=== PATIENT | male | born 1970 | race Caucasian/White ===

== ENCOUNTER 2017-06-20 03:24 | Emergency (ER) | payer OTHER ==
[2017-06-20] MEDS ORDERED: LORazepam 1 MG TAB PO STA (03:50)
--- NOTE | 2017-06-20 03:57 | ED ---
General Adult HPI - General Chief complaint: Upper Respiratory Infection Stated complaint: congestion Time Seen by Provider: 06/20/17 03:46 Source: patient, family, RN notes reviewed Mode of arrival: ambulatory Limitations: no limitations - History of Present Illness Initial comments: Patient is a pleasant 46-year-old male presenting to the emergency Department with congestion and anxiety. Symptoms have been present for the past 8 days. Patient does have sinus congestion with some drainage. Patient feels an echoing in his ears. Patient is unclear if he has some mild discomfort in his head. Patient is feeling anxious and difficult to relax. No chest congestion or cough or dyspnea. No fevers. No weakness or confusion. - Related Data Home Medications Medication Instructions Recorded Confirmed Levothyroxine Sodium [Synthroid] 75 mcg PO DAILY 04/12/15 06/20/17 traMADol HCL/ACETAMINOPHEN 1 each PO Q6H PRN 06/14/15 06/20/17 [Ultracet 37.5-325] Hydrochlorothiazide 25 mg PO 06/20/17 Losartan Potassium 100 mg PO 06/20/17 06/20/17 cloNIDine HCL 0.3 mg PO 06/20/17 Allergies Allergy/AdvReac Type Severity Reaction Status Date / Time amlodipine [From Norvasc] AdvReac Cough Verified 06/20/17 03:34 enalaprilat [From Vasotec] AdvReac Cough Verified 06/20/17 03:34 hydrochlorothiazide AdvReac Cough Verified 06/20/17 03:34 [From Dyazide] triamterene [From Dyazide] AdvReac Cough Verified 06/20/17 03:34 Review of Systems ROS Statement: Those systems with pertinent positive or pertinent negative responses have been documented in the HPI. ROS Other: All systems not noted in ROS Statement are negative. Constitutional: Denies: fever, chills Eyes: Denies: eye pain ENT: Reports: congestion Respiratory: Denies: cough, dyspnea Cardiovascular: Denies: chest pain Endocrine: Denies: fatigue Gastrointestinal: Denies: abdominal pain Genitourinary: Denies: dysuria Musculoskeletal: Denies: back pain Skin: Denies: rash Neurological: Denies: weakness, confusion Psychiatric: Reports: anxiety Past Medical History Past Medical History: Hypertension, Thyroid Disorder History of Any Multi-Drug Resistant Organisms: None Reported Past Surgical History: Tonsillectomy Past Psychological History: No Psychological Hx Reported Smoking Status: Never smoker Past Alcohol Use History: None Reported Past Drug Use History: None Reported General Exam Limitations: no limitations General appearance: alert, in no apparent distress Head exam: Present: atraumatic Eye exam: Present: normal appearance, PERRL, other (Mild tenderness to the frontal ethmoid and maxillary sinuses.) ENT exam: Present: normal oropharynx Neck exam: Present: normal inspection Respiratory exam: Present: normal lung sounds bilaterally Cardiovascular Exam: Present: regular rate, normal rhythm GI/Abdominal exam: Present: soft. Absent: tenderness Extremities exam: Present: normal inspection Neurological exam: Present: alert, oriented X3, CN II-XII intact. Absent: motor sensory deficit Expanded Speech: Present: fluid speech Cranial nerves: EOM's Intact: Normal Psychiatric exam: Present: normal affect, normal mood Skin exam: Present: normal color Course Vital Signs 06/20/17 06/20/17 06/20/17 03:27 04:58 05:21 Temperature 96.9 F L Pulse Rate 68 73 76 Respiratory 20 18 18 Rate Blood Pressure 188/109 154/108 156/96 O2 Sat by Pulse 99 99 98 Oximetry 06/20/17 05:58 Temperature Pulse Rate 72 Respiratory 20 Rate Blood Pressure 146/93 O2 Sat by Pulse 99 Oximetry EKG Findings - EKG Comments: EKG Findings:: Normal sinus rhythm 74. AZ 156. QRS 98. QT 392. QTC 435. Normal axis. LVH criteria. Q wave in V1 and V2. No acute ST change. Medical Decision Making - Medical Decision Making Patient reexamined and improved following Ativan. Patient and family updated on results and need for follow-up. Patient also updated on need to follow-up for elevation of blood sugar. Patient advised to consider [id number] Claritin, saline nasal spray, or nasal steroid as needed. Blood pressure has improved. - Lab Data Result diagrams: 06/20/17 05:19 06/20/17 05:19 Lab Results 06/20/17 06/20/17 Range/Units 05:19 05:19 WBC 6.3 (3.8-10.6) k/uL RBC 5.00 (4.30-5.90) m/uL Hgb 15.2 (13.0-17.5) gm/dL Hct 43.3 (39.0-53.0) % MCV 86.7 (80.0-100.0) fL MCH 30.3 (25.0-35.0) pg MCHC 35.0 (31.0-37.0) g/dL RDW 14.0 (11.5-15.5) % Plt Count 298 (150-450) k/uL Neutrophils % 54 % Lymphocytes % 27 % Monocytes % 8 % Eosinophils % 8 % Basophils % 2 % Neutrophils # 3.4 (1.3-7.7) k/uL Lymphocytes # 1.7 (1.0-4.8) k/uL Monocytes # 0.5 (0-1.0) k/uL Eosinophils # 0.5 (0-0.7) k/uL Basophils # 0.1 (0-0.2) k/uL Sodium 137 (137-145) mmol/L Potassium 4.3 (3.5-5.1) mmol/L Chloride 101 (98-107) mmol/L Carbon Dioxide 29 (22-30) mmol/L Anion Gap 7 mmol/L BUN 8 L (9-20) mg/dL Creatinine 0.90 (0.66-1.25) mg/dL Est GFR (MDRD) Af Amer >60 (>60 ml/min/1.73 sqM) Est GFR (MDRD) Non-Af >60 (>60 ml/min/1.73 sqM) Glucose 147 H (74-99) mg/dL Calcium 9.5 (8.4-10.2) mg/dL Total Bilirubin 0.7 (0.2-1.3) mg/dL AST 37 (17-59) U/L ALT 63 (21-72) U/L Alkaline Phosphatase 42 (38-126) U/L Total Protein 6.5 (6.3-8.2) g/dL Albumin 4.0 (3.5-5.0) g/dL - Radiology Data Radiology results: report reviewed (Computed tomography scan of the brain shows no acute process) Disposition Clinical Impression: Head congestion, Hypertension, Anxiety Disposition: HOME SELF-CARE Condition: Stable Instructions: Antihistamine/Decongestant (By mouth), Hypertension (ED), Anxiety (ED) Additional Instructions: Please follow-up with doctor tomorrow. Return for difficulty breathing, change in mental status, weakness or confusion, worsening symptoms or other concerns. Please also have your doctor recheck blood sugar. Referrals: Suma Jacobo DO [Primary Care Provider] - 1-2 days Time of Disposition: 06:37
--- NOTE | 2017-06-20 04:53 | CT ---
EXAM: CT Head Without Intravenous Contrast CLINICAL HISTORY: congestion, facial pain, recent diagnosis of sinusitis, TECHNIQUE: Axial computed tomography images of the head/brain without intravenous contrast. CTDI is 57.4 mGy and DLP is 1047.1 mGy-cm. This CT exam was performed using one or more of the following dose reduction techniques: automated exposure control, adjustment of the mA and/or kV according to patient size, and/or use of iterative reconstruction technique. Coronal and sagittal reconstructions are performed COMPARISON: No relevant prior studies available. FINDINGS: Brain: Unremarkable. No hemorrhage. No significant white matter disease. No edema. Ventricles: Unremarkable. No ventriculomegaly. Bones/joints: Unremarkable. No acute fracture. Soft tissues: Unremarkable. Sinuses: Unremarkable as visualized. No acute sinusitis. Mastoid air cells: Unremarkable as visualized. No mastoid effusion. 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 IMPRESSION: No acute findings. Clear paranasal sinuses
[2017-06-20] MEDS ORDERED: cloNIDine HCL 0.1 MG TAB PO STA (04:57)
[2017-06-20] MEDS ORDERED: LORazepam 2 MG/ML INJ IV STA (04:57)
[2017-06-20] MEDS ORDERED: LOSARTAN 50 MG TAB PO STA (04:58)
[2017-06-20 05:42] LABS: Basophils # (A) 0.1 k/uL (0-0.2); Basophils % (A) 2 %; CH 30.8; CHCM 35.6; Eosinophils # (A) 0.5 k/uL (0-0.7); Eosinophils % (A) 8 %; HCT 43.3 % (39.0-53.0); HDW 2.85; HGB 15.2 gm/dL (13.0-17.5); Luc # (Auto) 0.14; Luc % (Auto) 2; Lymphocytes # (A) 1.7 k/uL (1.0-4.8); Lymphocytes % (A) 27 %; MCH 30.3 pg (25.0-35.0); MCV 86.7 fL (80.0-100.0); Mean Platelet Volume 6.7; Monocytes # (A) 0.5 k/uL (0-1.0); Monocytes % (A) 8 %; Neutrophils # (A) 3.4 k/uL (1.3-7.7); Neutrophils % (A) 54 %; WBC 6.3 k/uL (3.8-10.6); WBC (Perox) 6.49
[2017-06-20 06:20] LABS: ALT 63 U/L (21-72); AST 37 U/L (17-59); Alkaline Phosphatase 42 U/L (38-126); Anion Gap 7 mmol/L; Blood Urea Nitrogen 8 mg/dL (9-20); Calcium 9.5 mg/dL (8.4-10.2); Carbon Dioxide 29 mmol/L (22-30); Chloride 101 mmol/L (98-107); Glucose 147 mg/dL (74-99); Non-African American GFR(MDRD) >60 (>60 ml/min/1.73 sqM); Sodium 137 mmol/L (137-145); Total Bilirubin 0.7 mg/dL (0.2-1.3); Total Protein 6.5 g/dL (6.3-8.2)
[2017-06-20 06:25] LABS: Potassium 4.3 mmol/L (3.5-5.1)
[2017-06-20] MEDS ORDERED: HYDROCHLOROTHIAZIDE 25 MG TAB PO STA (06:31)
[2017-06-20 07:08] VITALS: BP 129/70; PULSE 70; RESP 18; TEMP 97.6
[2017-06-20] MEDS ORDERED: HYDROCHLOROTHIAZIDE 25 MG TAB PO SCH (09:00)
== END 2017-06-20 07:08 | disposition home or self-care (01) ==
LOC: EC 03:24
DX: R09.81 Nasal congestion (principal); F41.9 Anxiety disorder, unspecified; I10 Essential (primary) hypertension; E07.9 Disorder of thyroid, unspecified; Z88.8 Allergy status to other drugs, medicaments and biological substances; Z79.899 Other long term (current) drug therapy
CPT/HCPCS: 99284; 96374; 36415; 93005; 80053; 85025; 70450; J2060

== ENCOUNTER → 2018-05-11 | Outpatient (CLI) | payer OTHER ==
--- NOTE | 2018-05-11 15:45 | US ---
EXAMINATION TYPE: US abdomen complete DATE OF EXAM: 05/11/2018 COMPARISON: CT abdomen and pelvis April 12, 2015 CLINICAL HISTORY: R94.5 Abnormal results of liver function studies. EXAM MEASUREMENTS: Liver Length: 17.6 cm Gallbladder Wall: 0.2 cm CBD: 0.5 cm Spleen: 13.9 cm Right Kidney: 12.3 x 6.4 x 7.0 cm Left Kidney: 14.1 x 6.9 x 6.9 cm Pancreas: Obscured by bowel gas Liver: Increased attenuation, decreased visualization of vessels suggestive of fatty infiltrate Gallbladder: No stones seen Evidence for sonographic Hughes's sign: no CBD: wnl Spleen: 13.9 cm ? enlarged Right Kidney: No hydronephrosis or masses seen Left Kidney: No hydronephrosis or masses seen Upper IVC: Obscured by overlying bowel gas Abd Aorta: Obscured by overlying bowel gas Images limited by large body habitus. The visualized liver remains markedly heterogeneously hyperechoic. Evaluation for focal masses is sub optimal due to the heterogeneity. The intrahepatic portion of the IVC and abdominal aorta are obscure d by overlying bowel gas. There is no evidence of shadowing mobile cholelithiasis. Common bile duct is unremarkable. The pancreas suboptimally seen on images saved secondary to shadowing from overlyin g bowel gas per technologist. The spleen is mildly enlarged and heterogeneous. Kidneys are symmetri c and free of hydronephrosis. No renal lesions are seen. IMPRESSION: Suboptimal study with marked fatty infiltration of liver redemonstrated.
== END | disposition home or self-care (01) ==
LOC: RADUSWWP 08:45
PROVIDERS: ATTEND Family Medicine
DX: K76.0 Fatty (change of) liver, not elsewhere classified (principal)
CPT/HCPCS: 76700

== ENCOUNTER 2019-03-10 08:45 | Emergency (ER) | payer OTHER ==
[2019-03-10 08:50] VITALS: RESP 18
[2019-03-10] MEDS ORDERED: LABETALOL 5 MG/ML VIAL MDV IVP STA (09:10)
--- NOTE | 2019-03-10 09:38 | XR ---
EXAMINATION TYPE: XR chest 2V DATE OF EXAM: 03/10/2019 COMPARISON: NONE TECHNIQUE: PA and lateral views submitted. HISTORY: Difficulty breathing FINDINGS: The lungs are clear and there is no pneumothorax, pleural effusion, or focal pneumonia. Hypertrophi c change of the spine. Arthropathy of the shoulders. No overt failure. Mild cardiomegaly. Central int erstitium mildly prominent. IMPRESSION: 1. Mild cardiomegaly. Central interstitium mildly prominent could been the basis of early venous fahad estion or bronchitis correlate clinically.
[2019-03-10 09:46] LABS: INR 0.9 (<1.2); Partial Thromboplastin Time 24.6 sec (22.0-30.0)
[2019-03-10 09:48] LABS: ALT 37 U/L (21-72); AST 27 U/L (17-59); African American GFR (CKD) >90 (>60 ml/min/1.73 sqM); Albumin 4.1 g/dL (3.5-5.0); Alkaline Phosphatase 43 U/L (38-126); Anion Gap 7 mmol/L; Blood Urea Nitrogen 14 mg/dL (9-20); Calcium 9.1 mg/dL (8.4-10.2); Carbon Dioxide 29 mmol/L (22-30); Chloride 104 mmol/L (98-107); Glucose 150 mg/dL (74-99); Magnesium 1.7 mg/dL (1.6-2.3); Non-African American GFR(CKD) >90 (>60 ml/min/1.73 sqM); Potassium 3.6 mmol/L (3.5-5.1); Sodium 140 mmol/L (137-145); Total Bilirubin 1.7 mg/dL (0.2-1.3); Total Protein 6.5 g/dL (6.3-8.2)
--- NOTE | 2019-03-10 09:49 | ED ---
Recheck HPI - General Chief Complaint: Shortness of Breath Stated Complaint: High BP, SOB Time Seen by Provider: 03/10/19 08:51 Source: patient, RN notes reviewed, old records reviewed Mode of arrival: ambulatory Limitations: no limitations - History of Present Illness Initial Comments: This is a 48-year-old male the ER for evaluation. Patient resents today for a few complaints. Patient complaining of hypertension and shortness of breath shortness of breath mainly with exertion. Occasional chest pain but nothing significant. Patient is a cardiac evaluation before including stress test. Patient states symptoms have been episodic for a few weeks. Patient was seen by primary care month ago blood pressure was running normal). Patient is on 3 blood pressure medications he takes as directed. No recent travel history no sick contacts mild swelling of lower extremities MD Complaint: other (Patient recheck abnormal blood pressure) -: unknown Returns Today for: Called Because of Abnormal Lab/Test (Evaluation of elevated blood pressure) Symptoms Since Prior Visit: no new symptoms (Mild shortness of breath episodic) Context: other (Symptoms of shortness of breath) Associated Symptoms: chest pain, shortness of breath Treatments Prior to Arrival: other medications (Prescribed) - Related Data Home Medications Medication Instructions Recorded Confirmed Levothyroxine Sodium [Synthroid] 75 mcg PO DAILY 04/12/15 03/10/19 Hydrochlorothiazide 25 mg PO DAILY 06/20/17 03/10/19 Losartan Potassium 100 mg PO DAILY 06/20/17 03/10/19 cloNIDine HCL 0.3 mg PO BID 06/20/17 03/10/19 metFORMIN HCL ER [Glucophage Xr] 500 mg PO DAILY 03/10/19 03/10/19 Allergies Allergy/AdvReac Type Severity Reaction Status Date / Time amlodipine [From Norvasc] AdvReac Cough Verified 03/10/19 09:24 enalaprilat [From Vasotec] AdvReac Cough Verified 03/10/19 09:24 hydrochlorothiazide AdvReac Cough Verified 03/10/19 09:24 [From Dyazide] triamterene [From Dyazide] AdvReac Cough Verified 03/10/19 09:24 Review of Systems ROS Statement: Those systems with pertinent positive or pertinent negative responses have been documented in the HPI. ROS Other: All systems not noted in ROS Statement are negative. Past Medical History Past Medical History: Hypertension, Thyroid Disorder History of Any Multi-Drug Resistant Organisms: None Reported Past Surgical History: Tonsillectomy Past Psychological History: No Psychological Hx Reported Smoking Status: Never smoker Past Alcohol Use History: None Reported Past Drug Use History: None Reported General Exam Limitations: no limitations General appearance: alert, in no apparent distress Head exam: Present: atraumatic, normocephalic, normal inspection Eye exam: Present: normal appearance, PERRL, EOMI. Absent: scleral icterus, conjunctival injection, periorbital swelling ENT exam: Present: normal exam, mucous membranes moist Neck exam: Present: normal inspection. Absent: tenderness, meningismus, lymphadenopathy Respiratory exam: Present: normal lung sounds bilaterally. Absent: respiratory distress, wheezes, rales, rhonchi, stridor Cardiovascular Exam: Present: regular rate, normal rhythm, normal heart sounds. Absent: systolic murmur, diastolic murmur, rubs, gallop, clicks GI/Abdominal exam: Present: soft, normal bowel sounds. Absent: distended, tenderness, guarding, rebound, rigid Extremities exam: Present: normal inspection, full ROM, normal capillary refill. Absent: tenderness, pedal edema, joint swelling, calf tenderness Back exam: Present: normal inspection Neurological exam: Present: alert, oriented X3, CN II-XII intact Psychiatric exam: Present: normal affect, normal mood Skin exam: Present: warm, dry, intact, normal color. Absent: rash Course Vital Signs 03/10/19 03/10/19 03/10/19 08:48 09:12 09:30 Temperature 98.3 F Pulse Rate 77 73 84 Respiratory 18 18 Rate Blood Pressure 201/106 170/135 155/92 O2 Sat by Pulse 98 98 98 Oximetry 03/10/19 03/10/19 10:00 10:30 Temperature Pulse Rate 66 65 Respiratory 17 18 Rate Blood Pressure 155/92 150/88 O2 Sat by Pulse 96 97 Oximetry - Reevaluation(s) Reevaluation #1: 03/10/19 09:49 Medical records reviewed Medical Decision Making - Medical Decision Making 48 male the ER for evaluation presented today for shortness of breath no improvement.Patient here in the ER blood pressures improved without treatment. Patient will continue follow-up with primary care or cardiology in the future for further management of blood pressure - Lab Data Result diagrams: 03/10/19 09:15 08/10/19 09:15 Lab Results 03/10/19 03/10/19 03/10/19 Range/Units 09:15 09:15 09:15 WBC 5.7 (3.8-10.6) k/uL RBC 4.85 (4.30-5.90) m/uL Hgb 14.9 (13.0-17.5) gm/dL Hct 42.0 (39.0-53.0) % MCV 86.6 (80.0-100.0) fL MCH 30.7 (25.0-35.0) pg MCHC 35.4 (31.0-37.0) g/dL RDW 15.9 H (11.5-15.5) % Plt Count 241 (150-450) k/uL Neutrophils % 54 % Lymphocytes % 29 % Monocytes % 5 % Eosinophils % 9 % Basophils % 1 % Neutrophils # 3.1 (1.3-7.7) k/uL Lymphocytes # 1.7 (1.0-4.8) k/uL Monocytes # 0.3 (0-1.0) k/uL Eosinophils # 0.5 (0-0.7) k/uL Basophils # 0.1 (0-0.2) k/uL Manual Slide Review Performed Hyperchromasia Slight PT (9.0-12.0) sec INR (<1.2) APTT (22.0-30.0) sec Sodium 140 (137-145) mmol/L Potassium 3.6 (3.5-5.1) mmol/L Chloride 104 (98-107) mmol/L Carbon Dioxide 29 (22-30) mmol/L Anion Gap 7 mmol/L BUN 14 (9-20) mg/dL Creatinine 0.92 (0.66-1.25) mg/dL Est GFR (CKD-EPI)AfAm >90 (>60 ml/min/1.73 sqM) Est GFR (CKD-EPI)NonAf >90 (>60 ml/min/1.73 sqM) Glucose 150 H (74-99) mg/dL Calcium 9.1 (8.4-10.2) mg/dL Magnesium 1.7 (1.6-2.3) mg/dL Total Bilirubin 1.7 H (0.2-1.3) mg/dL AST 27 (17-59) U/L ALT 37 (21-72) U/L Alkaline Phosphatase 43 (38-126) U/L Troponin I (0.000-0.034) ng/mL NT-Pro-B Natriuret Pep 98 pg/mL Total Protein 6.5 (6.3-8.2) g/dL Albumin 4.1 (3.5-5.0) g/dL 03/10/19 03/10/19 Range/Units 09:15 09:15 WBC (3.8-10.6) k/uL RBC (4.30-5.90) m/uL Hgb (13.0-17.5) gm/dL Hct (39.0-53.0) % MCV (80.0-100.0) fL MCH (25.0-35.0) pg MCHC (31.0-37.0) g/dL RDW (11.5-15.5) % Plt Count (150-450) k/uL Neutrophils % % Lymphocytes % % Monocytes % % Eosinophils % % Basophils % % Neutrophils # (1.3-7.7) k/uL Lymphocytes # (1.0-4.8) k/uL Monocytes # (0-1.0) k/uL Eosinophils # (0-0.7) k/uL Basophils # (0-0.2) k/uL Manual Slide Review Hyperchromasia PT 10.0 (9.0-12.0) sec INR 0.9 (<1.2) APTT 24.6 (22.0-30.0) sec Sodium (137-145) mmol/L Potassium (3.5-5.1) mmol/L Chloride (98-107) mmol/L Carbon Dioxide (22-30) mmol/L Anion Gap mmol/L BUN (9-20) mg/dL Creatinine (0.66-1.25) mg/dL Est GFR (CKD-EPI)AfAm (>60 ml/min/1.73 sqM) Est GFR (CKD-EPI)NonAf (>60 ml/min/1.73 sqM) Glucose (74-99) mg/dL Calcium (8.4-10.2) mg/dL Magnesium (1.6-2.3) mg/dL Total Bilirubin (0.2-1.3) mg/dL AST (17-59) U/L ALT (21-72) U/L Alkaline Phosphatase (38-126) U/L Troponin I <0.012 (0.000-0.034) ng/mL NT-Pro-B Natriuret Pep pg/mL Total Protein (6.3-8.2) g/dL Albumin (3.5-5.0) g/dL - EKG Data -: EKG Interpreted by Me (EKG shows sinus rhythm rate of 60, LA 172, QRS 100, QTC 444) - Radiology Data Radiology results: report reviewed (Chest x-rays negative for acute disease), image reviewed Disposition Clinical Impression: Hypertension Disposition: HOME SELF-CARE Condition: Good Instructions (If sedation given, give patient instructions): Hypertension (ED) Is patient prescribed a controlled substance at d/c from ED?: No Referrals: Suma Jacobo DO [Primary Care Provider] - 1-2 days Greg Cabello MD [STAFF PHYSICIAN] - 1-2 days
[2019-03-10 09:55] LABS: Basophils # (A) 0.1 k/uL (0-0.2); Basophils % (A) 1 %; Eosinophils # (A) 0.5 k/uL (0-0.7); Eosinophils % (A) 9 %; HGB 14.9 gm/dL (13.0-17.5); Hyperchromasia Slight; Lymphocytes # (A) 1.7 k/uL (1.0-4.8); Lymphocytes % (A) 29 %; MCH 30.7 pg (25.0-35.0); MCHC 35.4 g/dL (31.0-37.0); MCV 86.6 fL (80.0-100.0); Mean Platelet Volume 6.6; Monocytes # (A) 0.3 k/uL (0-1.0); Monocytes % (A) 5 %; Neutrophils # (A) 3.1 k/uL (1.3-7.7); Neutrophils % (A) 54 %; Platelet Count 241 k/uL (150-450); RBC 4.85 m/uL (4.30-5.90); RDW 15.9 % (11.5-15.5); WBC 5.7 k/uL (3.8-10.6)
[2019-03-10] MEDS ORDERED: FUROSEMIDE 10 MG/ML 4 ML VIAL IV STA (11:06)
[2019-03-10 11:17] VITALS: BP 160/92; PULSE 67; TEMP 98
== END 2019-03-10 11:35 | disposition home or self-care (01) ==
LOC: EC 08:45
DX: I10 Essential (primary) hypertension (principal); R06.02 Shortness of breath; R07.9 Chest pain, unspecified; M79.89 Other specified soft tissue disorders; E07.9 Disorder of thyroid, unspecified; Z88.8 Allergy status to other drugs, medicaments and biological substances; Z79.84 Long term (current) use of oral hypoglycemic drugs; Z79.890 Hormone replacement therapy; Z79.899 Other long term (current) drug therapy
CPT/HCPCS: 36415; 83880; 80053; 83735; 84484; 85025; 85610; 85730; 71046; 99285; 96374; 96375; J1940; 93005

== ENCOUNTER → 2019-03-28 | Outpatient (CLI) | payer OTHER ==
--- NOTE | 2019-03-28 11:11 | ECHOF ---
Referral Reason:R06.02 SOB MEASUREMENTS -------- HEIGHT: 182.9 cm WEIGHT: 157.8 kg BP: RVIDd: 3.0 cm (< 3.3) IVSd: 1.5 cm (0.6 - 1.1) LVIDd: 4.9 cm (3.9 - 5.3) LVPWd: 1.6 cm (0.6 - 1.1) IVSs: 1.8 cm LVIDs: 3.7 cm LVPWs: 1.9 cm LA Diam: 4.1 cm (2.7 - 3.8) LAESV Index (A-L): 24.32 ml/m Ao Diam: 3.0 cm (2.0 - 3.7) AV Cusp: 1.7 cm (1.5 - 2.6) LA Diam: 5.0 cm (2.7 - 3.8) MV EXCURSION: 19.523 mm (> 18.000) MV EF SLOPE: 74 mm/s (70 - 150) EPSS: 0.7 cm MV E Isreal: 0.55 m/s MV DecT: 248 ms MV A Isreal: 0.53 m/s MV E/A Ratio: 1.04 RAP: 5.00 mmHg RVSP: 14.73 mmHg FINDINGS -------- Sinus rhythm. Morbid Obesity The left ventricular size is normal. There is moderate concentric left ventricular hypertrophy. O verall left ventricular systolic function is low-normal with, an EF between 50 - 55 %. The right ventricle is normal in size. The left atrium is mildly dilated. Normal LA size by volume 22+/-6 ml/m2. The right atrial size is normal. The aortic valve is trileaflet, and appears structurally normal. No aortic stenosis or regurgitation. Mild mitral regurgitation is present. Mild tricuspid regurgitation present. Right ventricular systolic pressure is normal at < 35 mmHg. There is no evidence of pulmonary hypertension. There is no pulmonic regurgitation present. The aortic root size is normal. There is no pericardial effusion. CONCLUSIONS -------- 1. Sinus rhythm. 2. Morbid Obesity 3. The left ventricular size is normal. 4. There is moderate concentric left ventricular hypertrophy. 5. Overall left ventricular systolic function is low-normal with, an EF between 50 - 55 %. 6. The right ventricle is normal in size. 7. The left atrium is mildly dilated. 8. Normal LA size by volume 22+/-6 ml/m2. 9. The right atrial size is normal. 10. The aortic valve is trileaflet, and appears structurally normal. No aortic stenosis or regurgitat ion. 11. Mild mitral regurgitation is present. 12. Mild tricuspid regurgitation present. 13. Right ventricular systolic pressure is normal at < 35 mmHg. 14. There is no evidence of pulmonary hypertension. 15. There is no pulmonic regurgitation present. 16. The aortic root size is normal. 17. There is no pericardial effusion. TOOL KEEPER: Avani Maher RDCS
--- NOTE | 2019-03-28 11:16 | EST ---
EXERCISE STRESS DATE OF SERVICE: 03/28/2019 AGE: 48 SEX: Male HT: 73" WT: 348 pounds PROTOCOL: Bo STAGE: III DURATION OF EXERCISE: 9 minutes HEART RATE REST: 75 BLOOD PRESSURE REST: 152/97 MAXIMUM HEART RATE ACHIEVED: 150 MAXIMUM BLOOD PRESSURE: 256/98 85% MPHR: 147 100% MPHR: 173 METS: 10 INDICATIONS: Hypertension and difficulty in breathing. CLINICAL INFORMATION: Baseline EKG shows sinus rhythm, poor R-wave progression. Patient exercised on Bo protocol for a total of 9 minutes achieving 10 METs, 87% of predicted maximal heart rate without chest pain. At this level of exercise, patient developed 1.[address]-segment depression in the inferolateral leads. CONCLUSIONS: 1. Good exercise tolerance. 2. Abnormal stress test by EKG criteria. MMODL / IJN: [id number] /
== END | disposition home or self-care (01) ==
LOC: RADNMMAIN 08:23
PROVIDERS: ATTEND Family Medicine
DX: I07.1 Rheumatic tricuspid insufficiency (principal); I05.1 Rheumatic mitral insufficiency; E66.01 Morbid (severe) obesity due to excess calories
CPT/HCPCS: 93017; 93306

== ENCOUNTER → 2019-04-04 | Outpatient (CLI) | payer OTHER ==
[~2019-04-04] MED LIST: REGADENOSON 0.4 MG/5 ML SYRINGE IV ONE
--- NOTE | 2019-04-04 11:49 | NM ---
EXAMINATION TYPE: NM stress lexiscan cardiolite DATE OF EXAM: 04/04/2019 COMPARISON: NONE HISTORY: Shortness of breath with abnormal EKG TECHNIQUE: After the intravenous administration of 10.26 mCi Tc 99m Sestamibi - Cardiolite resting S PECT images acquired 45 minutes post injection. The patient received 0.4mg Lexiscan, 26.9 mCi Tc 99m Sestamibi - Stress images obtained [address] injection FINDINGS: Review of stress and rest SPECT images demonstrates no reversible perfusion abnormality. Gated yusuf sis shows normal wall motion with an estimated left ventricular ejection fraction of 48 %. TID is wit hin normal limits at 1.02. IMPRESSION: No scintigraphic evidence for reversible ischemia. Estimated left ventricular ejection fraction of 48 %.
--- NOTE | 2019-04-05 07:59 | EST ---
EXERCISE STRESS DATE OF SERVICE: 04/04/2019 AGE: 48 SEX: Male HT: 73" WT: 348 pounds PROTOCOL: Lexiscan Cardiolite STAGE: DURATION OF EXERCISE: HEART RATE REST: 74 BLOOD PRESSURE REST: 131/91 MAXIMUM HEART RATE ACHIEVED: 89 MAXIMUM BLOOD PRESSURE: 85% MPHR: 147 100% MPHR: 175 METS: INDICATIONS: Chest pain. CLINICAL INFORMATION: STRESS DATA: Heart rate 74, pressure is 131/91 mmHg. Baseline EKG showed sinus mechanism. The 0.4 mg of Lexiscan given over 15 seconds per protocol. Max heart rate was 89 beats per minute. Maximum pressure was 131/91 mmHg. Clinically the patient did not have any symptoms and the EKG did not show any significant ST or T-wave abnormalities concerning for ischemia. CONCLUSION: 1. Nondiagnostic electrocardiogram stress testing in response to Lexiscan. 2. Please follow up on the Cardiolite portion on a separate report from the radiology department. MMODL / IJN: [id number] /
== END | disposition home or self-care (01) ==
LOC: RADNMMAIN 07:40
PROVIDERS: ATTEND Family Medicine
DX: R94.31 Abnormal electrocardiogram [ECG] [EKG] (principal); R06.02 Shortness of breath
CPT/HCPCS: 93017; 78452; A9500

== ENCOUNTER → 2021-09-06 | Outpatient (CLI) | payer OTHER ==
--- NOTE | 2021-09-06 09:37 | MR ---
EXAMINATION TYPE: MR knee RT wo con DATE OF EXAM: 09/06/2021 COMPARISON: None. HISTORY: Right knee pain and locking for 2 years. Osteoarthritis. Effusion. Pain. TECHNIQUE: Multiplanar, multisequence imaging of the right knee is performed without IV contrast. FINDINGS: Suboptimal due to motion artifact degradation. MEDIAL MENISCUS: Marked truncated appearance to the medial meniscus with only tiny residual meniscus noted posteriorly. LATERAL MENISCUS: Anterior and posterior horns are intact without tear. CRUCIATE LIGAMENTS: The anterior and posterior cruciate ligaments are intact and unremarkable. COLLATERAL LIGAMENTS: The medial collateral ligament and lateral collateral ligament complex are inta ct. There is medial bowing of the medial collateral ligament with moderate surrounding fluid. EXTENSOR MECHANISM: Visualized quadriceps and patellar tendons are intact. EFFUSION: Large suprapatellar joint effusion. POPLITEAL CYST: Moderate size popliteal/de jesus cyst measuring 6.3 cm long axis sagittal image 14. Tomi e ill-defined fluid superiorly suggests leak. There are some internal foreign bodies within the popli teal cyst. TRICOMPARTMENT SPACES: Severe narrowing medial tibiofemoral compartment. Moderate narrowing and spurr ing patellofemoral compartment. Mild to moderate lateral spurring lateral tibiofemoral compartment CARTILAGE: Full thickness cartilaginous loss medial tibiofemoral compartment. Some chondromalacia pat marlene with fissuring and cartilaginous loss along the posterior aspect of the patella greatest lateral aspect. BONE MARROW SIGNAL: Heterogeneous diffuse increased T2 signal medial tibial femoral compartment great est medial aspect and greatest over the distal femur with areas of articular low T1 signal. OTHER: No additional significant abnormality is appreciated. IMPRESSION: 1. Advanced degenerative changes medial tibiofemoral compartment as detailed above quite prominent fo r patient's chronologic age. 2. Full-thickness tearing of the majority of the medial meniscus, minimal residual meniscal tissue re wilbert present. 3. Large suprapatellar joint effusion. 4. Moderate patellofemoral joint arthropathy as detailed above. 5. Moderate-sized leaking popliteal cyst with internal debris 6. 6. Moderate MCL sprain injury.
== END | disposition home or self-care (01) ==
LOC: RADMRIMAIN 08:14
PROVIDERS: ATTEND Orthopaedic Surgery
DX: S83.241A Other tear of medial meniscus, current injury, right knee, initial encounter (principal); M25.461 Effusion, right knee; M12.861 Other specific arthropathies, not elsewhere classified, right knee; M71.21 Synovial cyst of popliteal space [Baker], right knee; X58.XXXA Exposure to other specified factors, initial encounter

== ENCOUNTER → 2023-10-07 | Outpatient (CLI) | payer OTHER ==
--- NOTE | 2023-10-07 17:45 | CA ---
Transthoracic Echo Report Name: Ulises Javier Age: 53 Gender: M : 1970 Exam Date: 10/07/2023 14:24 Exam Location: [facility] Ht (in): 71 Wt (lb): 295 Ordering Physician: Suma Jacobo DO Attending/Referring Phys: Evangelina Self [facility] Mobile Developer Eliz Lima RDCS Procedure CPT: Indications: I10 HYPERTENSION Cardiac Hx: Technical Quality: Contrast 1: Total Dose (mL): Contrast 2: Total Dose (mL): MEASUREMENTS (Male / Female) Normal Values 2D ECHO LV Diastolic Diameter PLAX 3.8 cm 4.2 - 5.9 / 3.9 - 5.3 cm LV Systolic Diameter PLAX 2.5 cm IVS Diastolic Thickness 1.3 cm 0.6 - 1.0 / 0.6 - 0.9 cm LVPW Diastolic Thickness 1.3 cm 0.6 - 1.0 / 0.6 - 0.9 cm LV Relative Wall Thickness 0.7 LVOT Diameter 2.6 cm Aortic Root Diameter 3.6 cm LA Systolic Diameter LX 4.3 cm 3.0 - 4.0 / 2.7 - 3.8 cm LV Diastolic Volume MOD BP 81.3 cm??? 67 - 155 / 56 - 104 cm??? LV Systolic Volume MOD BP 41.8 cm??? / 19 - 49 cm??? LV Ejection Fraction MOD BP 48.6 % >= 55 % LV Cardiac Index MOD BP 1165.4 cm???/min???m??? LV Diastolic Volume MOD 4C 107.3 cm??? LV Systolic Volume MOD 4C 54.6 cm??? LV Ejection Fraction MOD 4C 49.1 % LV Cardiac Index MOD 4C 1551.6 cm???/min???m??? LV Diastolic Length 4C 7.3 cm LV Systolic Length 4C 6.4 cm LV Diastolic Volume MOD 2C 58.1 cm??? LV Systolic Volume MOD 2C 25.6 cm??? LV Ejection Fraction MOD 2C 55.9 % LV Cardiac Index MOD 2C 957.6 cm???/min???m??? LV Diastolic Length 2C 6.8 cm LV Systolic Length 2C 4.9 cm LA Volume 50.9 cm??? - 58 / 22 - 52 cm??? LA Volume Index 19.2 cm???/m??? 16 - 28 cm???/m??? DOPPLER AV Peak Velocity 133.6 cm/s AV Peak Gradient 7.1 mmHg AV Mean Velocity 98.6 cm/s AV Mean Gradient 4.2 mmHg AV Velocity Time Integral 24.6 cm LVOT Peak Velocity 99.9 cm/s LVOT Peak Gradient 4.0 mmHg LVOT Velocity Time Integral 21.2 cm LVOT Stroke Volume 109.8 cm??? LVOT Stroke Volume Index 44.2 ml/m??? LVOT Cardiac Index 3235.5 cm???/min???m??? AV Area Cont Eq vti 4.5 cm??? AV Area Cont Eq pk 3.9 cm??? MV Area PHT 3.4 cm??? Mitral E Point Velocity 59.9 cm/s Mitral A Point Velocity 60.9 cm/s Mitral E to A Ratio 1.0 MV Deceleration Time 224.5 ms PV Peak Velocity 95.3 cm/s PV Peak Gradient 3.6 mmHg FINDINGS Left Ventricle Left ventricular ejection fraction is estimated at 55-60 %. Moderate concentric left ventricular hypertrophy. Mildly increased septal wall thickness. Right Ventricle Normal right ventricular size. Right Atrium Normal right atrial size. Left Atrium Mildly increased left atrial diameter. Mitral Valve Trace to mild mitral regurgitation. Aortic Valve Trileaflet aortic valve. Tricuspid Valve Trace to mild tricuspid regurgitation. Pulmonic Valve No pulmonic regurgitation. Pericardium No pericardial effusion. Aorta Normal size aortic root. CONCLUSIONS Normal LV function Previewed by: Dr. Sheldon De La Torre MD (Electronically Signed) Final Date: 07 October 2023 17:44
== END | disposition home or self-care (01) ==
LOC: RADECHMAIN 14:12
PROVIDERS: ATTEND Family Medicine
DX: I10 Essential (primary) hypertension (principal)
CPT/HCPCS: 93306

== ENCOUNTER 2023-10-10 06:19 | Emergency (ER) | payer OTHER ==
--- NOTE | 2023-10-10 07:14 | ED ---
Skin/Abscess/FB HPI - General Chief complaint: Skin/Abscess/Foreign Body Stated complaint: shingles Time Seen by Provider: 10/10/23 06:54 Source: patient, RN notes reviewed Mode of arrival: ambulatory Limitations: no limitations - History of Present Illness Initial comments: This is a 53-year-old male who presents to the emergency department for shingles . Patient noticed the rash to the left side of his forehead about 4 days ago and saw his primary care provider the next day. He was started on famciclovir by his PCP and has been taking this as prescribed. However, states that the rash is getting worse and is increasingly painful. This is causing his eye to be increasingly painful. Reports minor blurring of the vision, but is still able to see. He is taking ibuprofen without any relief in symptoms. MD complaint: rash - Related Data Home Medications Medication Instructions Recorded Confirmed Levothyroxine Sodium [Synthroid] 75 mcg PO DAILY 04/12/15 03/10/19 RX: Losartan Potassium 100 mg PO DAILY 06/20/17 03/10/19 RX: cloNIDine HCL [Catapres] 0.3 mg PO BID 06/20/17 03/10/19 RX: hydroCHLOROthiazide 25 mg PO DAILY 06/20/17 03/10/19 metFORMIN HCL ER [Glucophage Xr] 500 mg PO DAILY 03/10/19 03/10/19 Previous Rx's Medication Instructions Recorded RX: Ibuprofen [Motrin] 800 mg PO Q8H PRN #30 tab 10/10/23 Allergies Allergy/AdvReac Type Severity Reaction Status Date / Time amlodipine [From Norvasc] AdvReac Cough Verified 10/10/23 06:52 enalaprilat [From Vasotec] AdvReac Cough Verified 10/10/23 06:52 hydrochlorothiazide AdvReac Cough Verified 10/10/23 06:52 [From Dyazide] triamterene [From Dyazide] AdvReac Cough Verified 10/10/23 06:52 Review of Systems ROS Statement: Those systems with pertinent positive or pertinent negative responses have been documented in the HPI. ROS Other: All systems not noted in ROS Statement are negative. Past Medical History Past Medical History: Diabetes Mellitus, Hypertension, Thyroid Disorder History of Any Multi-Drug Resistant Organisms: None Reported Past Surgical History: Tonsillectomy Past Psychological History: No Psychological Hx Reported Smoking Status: Never smoker Past Alcohol Use History: None Reported Past Drug Use History: None Reported General Exam Limitations: no limitations General appearance: alert, in no apparent distress Head exam: Present: atraumatic, normocephalic, other (Fluid-filled vesicular lesions following the left V1 trigeminal nerve distribution.) Respiratory exam: Present: normal lung sounds bilaterally. Absent: respiratory distress, wheezes, rales, rhonchi, stridor Cardiovascular Exam: Present: regular rate, normal rhythm, normal heart sounds. Absent: systolic murmur, diastolic murmur, rubs, gallop, clicks Neurological exam: Present: alert, oriented X3, CN II-XII intact Psychiatric exam: Present: normal affect, normal mood Course Vital Signs 10/10/23 10/10/23 06:48 08:55 Temperature 98.7 F 98.4 F Pulse Rate 99 80 Respiratory 20 18 Rate Blood Pressure 146/99 142/80 O2 Sat by Pulse 98 99 Oximetry Medical Decision Making - Medical Decision Making This is a 53 year old male who presents to the emergency department for a rash. Was pt. sent in by a medical professional or institution? @ -No Did you speak to anyone other than the patient for history? @ -No Did you review nursing and triage notes? @ -Yes, and I agree, it is accurate with regards to the patient's symptoms. Were old charts reviewed? @ -No Differential Diagnosis? @ -Differential Rash: Roseola, measles, Lyme disease, erythema multiforme, cellulitis, toxic shock syndrome, Jun Thom syndrome, Kawasaki disease, carri mountain spotted fever, contact dermatitis, allergic dermatitis, measles, mumps, rubella, varic marlene, meningococcal disease, drug reaction, coxsackievirus, This is not meant to be an all-inclusive list. EKG interpreted by me (3pts min.)? @ -Not obtained X-rays interpreted by me (1pt min.)? @ -Not obtained CT interpreted by me (1pt min.)? @ -Not obtained U/S interpreted by me (1pt. min.)? @ -Not obtained What testing was considered but not performed? (CT, X-rays, U/S, labs)? Why? @ -None What meds were considered but not given? Why? @ -None Did you discuss the management of the patient with other professionals? @ -Yes, Dr. Hernandez, ophthalmology, who advised having the patient see him in the office today or tomorrow. Did you reconcile home meds? @ -No Was smoking cessation discussed for >3mins.? @ -No Was critical care preformed (if so, how long)? @ -No Were there social determinants of health that impacted care today? How? (Homelessness, low income, unemployed, alcoholism, drug addiction, transportation, low edu. Level, literacy, decrease access to med. care, intermediate, rehab)? @ -No Was there de-escalation of care discussed even if they declined? (Discuss DNR or withdrawal of care, Hospice)? @ -No What co-morbidities impacted this encounter? (DM, HTN, Smoking, COPD, CAD, Cancer, CVA, Hep., AIDS, mental health diagnosis, sleep apnea, morbid obesity)? @ -DM, HTN Was patient admitted / discharged? @ -Discharged. Physical examination consistent with herpes zoster ophthalmicus. Fluorescein staining does not demonstrate any obvious corneal lesions. Case discussed with Dr. Hernandez, ophthalmology. He advised that the patient needs to follow-up with him in the office either today or tomorrow for a complete eye exam. This was discussed with the patient, who is comfortable with discharge home and follow-up with ophthalmology. Pain was controlled in the emergency department. Rx for Ibuprofen provided and the patient was discharged home in stable condition. Undiagnosed new problem with uncertain prognosis? @ -None Drug Therapy requiring intensive monitoring for toxicity (Heparin, Nitro, Insulin, Cardizem)? @ -None Were any procedures done? @ -None Diagnosis/symptom? @ -Herpes zoster ophthalmicus Acute, or Chronic, or Acute on Chronic? @ -Acute Uncomplicated (without systemic symptoms) or Complicated (systemic symptoms)? @ -Uncomplicated Side effects of treatment? @ -None Exacerbation, Progression, or Severe Exacerbation] @ -Not applicable Poses a threat to life or bodily function? @ -This will depend on how his symptoms progress Return precautions reviewed in depth, the patient is instructed to return to the emergency department with any new, worsening, or concerning symptoms. Patient verbalized understanding. This case was discussed in detail with the attending ED physician, Dr. Carlos. Presentation, findings, and treatment plan discussed in detail as well. Disposition Clinical Impression: Herpes zoster ophthalmicus Disposition: HOME SELF-CARE Instructions (If sedation given, give patient instructions): Shingles (ED) Additional Instructions: Return to the emergency department with any new, worsening, or concerning symptoms. Alternate with ibuprofen and Tylenol as needed for pain relief. Contact the pulmonary physical therapist as listed below as soon as you are discharged from here, let then know that you were diagnosed with shingles in the eye and were told by Dr. Hernandez that you needed to be seen today or tomorrow. Prescriptions: RX: Ibuprofen [Motrin] 800 mg PO Q8H PRN #30 tab PRN Reason: Pain Is patient prescribed a controlled substance at d/c from ED?: No Referrals: Suma Jacobo DO [Primary Care Provider] - 1-2 days Ibeth Hernandez MD [STAFF PHYSICIAN] - 1-2 days Time of Disposition: 08:44
[2023-10-10] MEDS: KETOROLAC 15 MG/ML 1 ML VIAL IM STA (07:46)
[2023-10-10] MEDS: PROPARACAINE 0.5% OPHTH DROPS 15 ML BTL LEFT EYE STA (07:46)
[2023-10-10] MEDS: oxyCODONE-APAP 5-325MG 1 EACH TAB PO STA (07:47)
[2023-10-10] MEDS: FLUORESCEIN STRIPS 1 MG STRIP LEFT EYE ONE (07:47)
[2023-10-10 09:25] VITALS: BP 142/80; PULSE 80; RESP 18; TEMP 98.4
== END 2023-10-10 08:55 | disposition home or self-care (01) ==
LOC: EC 06:19
DX: B02.30 Zoster ocular disease, unspecified (principal); E11.9 Type 2 diabetes mellitus without complications; I10 Essential (primary) hypertension; E07.9 Disorder of thyroid, unspecified; Z79.890 Hormone replacement therapy; Z79.84 Long term (current) use of oral hypoglycemic drugs; Z79.899 Other long term (current) drug therapy; Z88.2 Allergy status to sulfonamides; Z88.8 Allergy status to other drugs, medicaments and biological substances
CPT/HCPCS: 99283; 96372; J1885